=== PATIENT | female | born 1990 | race Caucasian/White ===

== ENCOUNTER 2018-10-17 09:37 | Emergency (ER) | payer SELFPAY ==
[2018-10-17 09:46] VITALS: BP 112/86; PULSE 87; TEMP 98.7; BMI 23.4
[2018-10-17] MEDS ORDERED: IBUPROFEN 600 MG TABLET (FP) PO ONE ×2 (10:18→10:27)
--- NOTE | 2018-10-17 11:08 | PDOC ---
History of Present Illness - General Chief Complaint: Respiratory Stated Complaint: FLU LIKE SYMPTOMS Time Seen by Provider: 10/17/18 10:04 History Source: Patient Exam Limitations: No Limitations - History of Present Illness Initial Comments: 10/17/18 11:03 27 yo F w/ a h/o sinusitis comes in c/o 3-4 days of flu-like symptoms, with fever of 102 yesterday, runny nose, sneezing, sore throat, cough, facial pressure/pain with L sided ear pain. (+) generalized malaise, bodyaches, decrease in appetite, no decrease in urination, no known sick contacts, no recent travel. No nausea/vomiting/diarrhea. Pt has not taken any meds for symptoms 10/17/18 11:05 Past History - Past Medical History Allergies/Adverse Reactions: Allergies Allergy/AdvReac Type Severity Reaction Status Date / Time No Known Allergies Allergy Verified 10/17/18 09:46 Home Medications: Ambulatory Orders Amoxicillin/Potassium Clav [Augmentin 875-125 Tablet] 1 each PO BID 10 Days #20 tablet 10/17/18 Fluticasone Prop 0.05% Nasal [Flonase -] 1 - 2 spray NS DAILY #1 spray.pump 01/28 Ibuprofen 600 mg PO TID 3 Days #18 tablet 10/17/18 Pseudoephedrine HCl [Sudafed -] 60 mg PO TID 3 Days #20 tablet 10/17/18 Sodium Chloride Nasal [place] [[place]he [place] Nasal [place] -] 2 spray NS QID 4 Days # 1 spraybtl 10/17/18 COPD: No - Suicide/Smoking/Psychosocial Hx Smoking History: Never smoked Review of Systems - Review of Systems Able to Perform ROS?: Yes Constitutional: Yes: Fever, Malaise. No: Chills, Night Sweats HEENTM: Yes: Nose Congestion. No: Eye Pain, Recent change in vision, Throat Pain Respiratory: Yes: Cough. No: Shortness of Breath Cardiac (ROS): No: Chest Pain, Palpitations, Chest Tightness ABD/GI: No: Diarrhea, Nausea, Vomiting, Abdominal cramping : No: Dysuria, Hematuria Musculoskeletal: No: Back Pain Integumentary: No: Rash Neurological: No: Headache, Numbness, Dizziness Psychiatric: Yes: Change in Appetite Endocrine: No: Unexplained Weight Loss *Physical Exam - Vital Signs Last Vital Signs Temp Pulse Resp BP Pulse Ox 98.7 F 87 18 112/86 99 10/17/18 09:44 10/17/18 09:44 10/17/18 09:44 10/17/18 09:44 10/17/18 09:44 - Physical Exam General Appearance: Yes: Nourished. No: Apparent Distress HEENT: positive: SARAH, Normal ENT Inspection, Normal Voice, Rhinorrhea, Sinus Tenderness, TM Erythema (L sided). negative: Pale Conjunctivae, Scleral Icterus (R), Scleral Icterus (L) Neck: positive: Supple, Lymphadenopathy (L) (mild). negative: Decreased range of motion, Tender midline Respiratory/Chest: positive: Lungs Clear, Normal Breath Sounds. negative: Respiratory Distress, Accessory Muscle Use Cardiovascular: positive: Regular Rhythm, Regular Rate Gastrointestinal/Abdominal: positive: Normal Bowel Sounds, Soft. negative: Tender Musculoskeletal: positive: Normal Inspection. negative: CVA Tenderness, Decreased Range of Motion Extremity: positive: Normal Capillary Refill, Normal Inspection, Normal Range of Motion. negative: Tender, Pedal Edema Integumentary: positive: Normal Color, Dry. negative: Jaundice, Rash Neurologic: positive: Fully Oriented, Alert, Normal Mood/Affect ED Treatment Course - Medications Given in the ED: ED Medications Discontinued Medications Generic Name Dose Route Start Last Admin Trade Name Jimiq PRN Reason Stop Dose Admin Ibuprofen 600 mg 10/17/18 10:18 10/17/18 10:30 Motrin - PO 10/17/18 10:19 600 mg ONCE ONE Administration Medical Decision Making - Medical Decision Making 10/17/18 11:08 27 yo F w/ sinusitis, L sided ear infection. WIll R/O flu. Motrin ordered for pain FLu swab negative. WIll give augmentin for ear infection, will also give flonase , sudafed, saline spray Rest and drink planty of fluids PMD follow up Return for worsening/concerning symptoms Pt verbalizes understanding and agrees with plan 10/17/18 11:09 *DC/Admit/Observation/Transfer Diagnosis at time of Disposition: Sinusitis Qualifiers: Sinusitis location: unspecified location Chronicity: acute Recurrence: recurrent Qualified Code(s): J01.91 - Acute recurrent sinusitis, unspecified Middle ear infection Qualifiers: Otitis media type: unspecified Chronicity: acute Qualified Code(s): H66.90 - Otitis media, unspecified, unspecified ear - Discharge Dispostion Disposition: HOME Condition at time of disposition: Stable - Prescriptions Prescriptions: Amoxicillin/Potassium Clav [Augmentin 875-125 Tablet] 1 each PO BID 10 Days #20 tablet Fluticasone Prop 0.05% Nasal [Flonase -] 1 - 2 spray NS DAILY #1 spray.pump Ibuprofen 600 mg PO TID 3 Days #18 tablet Pseudoephedrine HCl [Sudafed -] 60 mg PO TID 3 Days #20 tablet Sodium Chloride Nasal [place] [[place]he [place] Nasal [place] -] 2 spray NS QID 4 Days # 1 spraybtl - Referrals - Patient Instructions Additional Instructions: Please take antibiotics for the full 10 days. Rest and drink plenty of fluids. Return for worsening/concerning symptoms. FOllow up with your regular doctor in 2 days for reassessment. Thank you - Post Discharge Activity
== END 2018-10-17 11:30 | disposition home or self-care (01) ==
LOC: JERFT 09:37
DX: H66.92 Otitis media, unspecified, left ear (principal); J01.91 Acute recurrent sinusitis, unspecified
CPT/HCPCS: 87804; 99281-25

== ENCOUNTER 2020-06-19 16:09 | Emergency (ER) | payer OTHER | END 2020-06-19 17:01 | disposition home or self-care (01) | LOC: JVIRT 16:09 | DX: Z03.818 Encounter for observation for suspected exposure to other biological agents ruled out (principal) | CPT/HCPCS: C9803; G2012-GT; U0003 ==

== ENCOUNTER 2021-03-27 16:27 | Emergency (ER) | payer OTHER ==
[2021-03-27 16:36] VITALS: BP 112/79; PULSE 83; TEMP 97.8; BMI 23.4
== END 2021-03-27 17:46 | disposition left against medical advice (07) ==
LOC: JER 16:27
DX: R10.30 Lower abdominal pain, unspecified (principal)
CPT/HCPCS: 99281-25